=== PATIENT | male | born 1995 | race African-American/Black ===

== ENCOUNTER 2017-03-24 22:35 | Emergency (ER) | payer OTHER ==
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
[~2017-03-24 22:35] MED LIST: NAPROSYN375 MG PO
== END 2017-03-25 05:30 | disposition home or self-care (01) ==
LOC: CFTX 22:35 → CED 22:35 → CFTX 23:59 → CED 23:59
DX: S63.115A Dislocation of metacarpophalangeal joint of left thumb, initial encounter (principal); J45.909 Unspecified asthma, uncomplicated; W22.8XXA Striking against or struck by other objects, initial encounter; Y93.39 Activity, other involving climbing, rappelling and jumping off; Y92.410 Unspecified street and highway as the place of occurrence of the external cause
CPT/HCPCS: 26700; 73130; 96372; 99152; 99153; 99283; J1170; J3010